=== PATIENT | female | born 1975 | race Caucasian/White ===

== ENCOUNTER → 2017-07-14 | Outpatient (CLI) | payer OTHER ==
[~2017-07-14] MED LIST: AUGMENTIN 875-1 EACH PO; BACTRIM DS TAB1 EAC1 PO; CEFDINIR300 MG PO; CELEXA 10 MG TA10 M1 PO; CIPRO500 MG PO; CLIMARA1 EAC2; CLIMARA1 EAC2 TD; CLIMARA1 EAC2 TRANSDERM; CLONAZEPAM PO; EFFEXOR XR37.5 MG PO; EPINEPHRIN0.3 MG/0.1 IM; EPIPEN0.3 MG/0.3; ESTROGEL50 GM TD; KLONOPIN1 MG PO; KLOR-CON 1010 MEQ PO; MEDROLDOSEPACK PO; PREDNISONE 10 M10 M1 PO; PREDNISONE 20 M20 MG PO; PREDNISONE50 MG PO; SINGULAIR 10 MG10 M1 PO; VITAMIN B-12500 MCG PO; VITAMIN D1000 UNI1 PO; ZYRTEC10 M2 PO
== END ==
LOC: M.RAD 11:17
DX: Z12.31 Encounter for screening mammogram for malignant neoplasm of breast (principal)

== ENCOUNTER → 2019-01-25 | Outpatient (CLI) | payer OTHER | LOC: M.RAD 13:41 | DX: Z12.31 Encounter for screening mammogram for malignant neoplasm of breast (principal) ==

== ENCOUNTER → 2019-10-10 | Outpatient (CLI) | payer OTHER | LOC: M.RAD 09:30 | PROVIDERS: ATTEND Registered Nurse Diabetes Educator | DX: R06.02 Shortness of breath (principal) ==

== ENCOUNTER → 2020-05-15 | Outpatient (CLI) | payer OTHER | LOC: M.PC 07:41 | PROVIDERS: ATTEND Anesthesiology Pain Medicine | DX: M54.5 Low back pain (principal); N80.0 Endometriosis of uterus; Z85.22 Personal history of malignant neoplasm of nasal cavities, middle ear, and accessory sinuses; Z91.018 Allergy to other foods ==

== ENCOUNTER → 2020-05-15 | Outpatient (CLI) | payer OTHER | LOC: M.RAD 07:43 | PROVIDERS: ATTEND Registered Nurse Diabetes Educator | DX: Z12.31 Encounter for screening mammogram for malignant neoplasm of breast (principal) ==

== ENCOUNTER → 2020-05-22 | Outpatient (CLI) | payer OTHER ==
[~2020-05-22] MED LIST changes: +NEURONTIN100 MG PO; +PRILOSEC OTC20 MG PO; +SPIRONOLACTONE25 MG PO; +XYZAL5 MG PO; +lisinopril PO; +sudafed; +vitamin b12; +vitamin d PO
== END | disposition home or self-care (01) ==
LOC: M.PC 09:28
PROVIDERS: ATTEND Anesthesiology Pain Medicine
DX: M54.5 Low back pain (principal); G89.29 Other chronic pain; M48.061 Spinal stenosis, lumbar region without neurogenic claudication; M47.896 Other spondylosis, lumbar region; Z98.890 Other specified postprocedural states; Z79.899 Other long term (current) drug therapy; Z90.710 Acquired absence of both cervix and uterus; Z90.49 Acquired absence of other specified parts of digestive tract

== ENCOUNTER → 2020-07-24 | Outpatient (CLI) | payer OTHER | END | disposition home or self-care (01) | LOC: M.PC 08:04 | PROVIDERS: ATTEND Anesthesiology Pain Medicine | DX: M54.5 Low back pain (principal); Z90.710 Acquired absence of both cervix and uterus; Z90.49 Acquired absence of other specified parts of digestive tract; Z98.890 Other specified postprocedural states; Z79.899 Other long term (current) drug therapy ==

== ENCOUNTER → 2020-09-24 | Outpatient (CLI) | payer OTHER | LOC: M.RAD 17:25 | PROVIDERS: ATTEND Registered Nurse Diabetes Educator | DX: U07.1 COVID-19 (principal); R06.2 Wheezing; R06.02 Shortness of breath ==

== ENCOUNTER → 2020-10-02 | Outpatient (CLI) | payer OTHER ==
[2020-10-02 14:19] LABS: CREATININE 0.9 mg/dL (0.6-1.3)
== END ==
LOC: M.LAB 13:54 → M.CT 15:00
PROVIDERS: ATTEND Registered Nurse Diabetes Educator
DX: R06.02 Shortness of breath (principal); R07.9 Chest pain, unspecified; N28.1 Cyst of kidney, acquired; I10 Essential (primary) hypertension

== ENCOUNTER → 2020-12-30 | Outpatient (CLI) | payer OTHER ==
[~2020-12-30] MED LIST changes: -EFFEXOR XR37.5 MG PO; +EFFEXOR XR75 MG PO
== END | disposition home or self-care (01) ==
LOC: M.PC 08:01
PROVIDERS: ATTEND Anesthesiology Pain Medicine
DX: M54.16 Radiculopathy, lumbar region (principal); G89.29 Other chronic pain; Z98.890 Other specified postprocedural states; Z79.899 Other long term (current) drug therapy; Z90.710 Acquired absence of both cervix and uterus; Z98.51 Tubal ligation status; Z90.49 Acquired absence of other specified parts of digestive tract; Z88.8 Allergy status to other drugs, medicaments and biological substances